=== PATIENT | male | born 1945 | race Caucasian/White ===

== ENCOUNTER 2021-07-01 09:55 | Emergency (ER) | payer MEDICARE, OTHER ==
[~2021-07-01] VITALS: Ht 172.7 cm; Wt 72.0 kg
[2021-07-01] MEDS ORDERED: ACET-2708 MT (10:41)
[2021-07-01] MEDS ORDERED: CYCL5TAB MT (10:41)
[2021-07-01 11:21] VITALS: BP 132/61
== END 2021-07-01 11:23 | disposition home or self-care (01) ==
LOC: ER 09:55
DX: S16.1XXA Strain of muscle, fascia and tendon at neck level, initial encounter (principal); M54.2 Cervicalgia; E11.9 Type 2 diabetes mellitus without complications; X58.XXXA Exposure to other specified factors, initial encounter; Y93.9 Activity, unspecified; Y92.9 Unspecified place or not applicable; Z88.6 Allergy status to analgesic agent; Z88.8 Allergy status to other drugs, medicaments and biological substances; Z98.890 Other specified postprocedural states
CPT/HCPCS: 93005; 99283